=== PATIENT | female | born 1975 | race Caucasian/White ===

== ENCOUNTER 2020-01-28 11:28 | Day surgery (SDC) | payer BC ==
[2020-01-28] MEDS ORDERED: FERRIC CARBOXYMALTOSE 750 MG in SODIUM CHLORIDE 250 ML IVPB ONE (12:45)
[2020-01-28 15:04] VITALS: BP 126/86; PULSE 86; TEMP 98
== END 2020-01-28 13:04 | disposition home or self-care (01) ==
LOC: J7W 11:28 → JINFUSION 11:28 → J7W 14:01
PROVIDERS: ATTEND Family Medicine
PROC: 3E033GC Introduction of Other Therapeutic Substance into Peripheral Vein, Percutaneous Approach (ICD-10-PCS; principal; 2020-01-28)
DX: D50.9 Iron deficiency anemia, unspecified (principal)
CPT/HCPCS: 96365; J1439

== ENCOUNTER 2020-07-19 05:04 | Day surgery (SDC) | payer BC ==
[2020-07-19] MEDS ORDERED: FERRIC CARBOXYMALTOSE 750 MG in SODIUM CHLORIDE 250 ML IVPB ONE (14:00)
[2020-07-19 14:02] VITALS: TEMP 98.2
[2020-07-19 14:41] VITALS: BP 121/74; PULSE 75
== END 2020-07-19 13:25 | disposition home or self-care (01) ==
LOC: JINFUSION 05:04
PROVIDERS: ATTEND Family Medicine
PROC: 3E033GC Introduction of Other Therapeutic Substance into Peripheral Vein, Percutaneous Approach (ICD-10-PCS; principal; 2020-07-19)
DX: D50.9 Iron deficiency anemia, unspecified (principal)
CPT/HCPCS: 81025; 96365; J1439

== ENCOUNTER 2020-07-26 04:51 | Day surgery (SDC) | payer BC ==
[2020-07-26] MEDS ORDERED: FERRIC CARBOXYMALTOSE 750 MG in SODIUM CHLORIDE 250 ML IVPB ONE (10:30)
[2020-07-26 11:49] VITALS: BP 128/72; PULSE 74; TEMP 97.8
== END 2020-07-26 11:49 | disposition home or self-care (01) ==
LOC: JINFUSION 04:51
PROVIDERS: ATTEND Family Medicine
PROC: 3E033GC Introduction of Other Therapeutic Substance into Peripheral Vein, Percutaneous Approach (ICD-10-PCS; principal; 2020-07-26)
DX: D50.9 Iron deficiency anemia, unspecified (principal)
CPT/HCPCS: 81025; 96365; J1439

== ENCOUNTER 2020-12-18 05:04 | Day surgery (SDC) | payer BC ==
[2020-12-18] MEDS ORDERED: FERRIC CARBOXYMALTOSE 750 MG in SODIUM CHLORIDE 250 ML IVPB ONE (12:00)
[2020-12-18 12:51] VITALS: TEMP 98.1
[2020-12-18 13:13] VITALS: BP 109/62; PULSE 68
== END 2020-12-18 13:46 | disposition home or self-care (01) ==
LOC: JINFUSION 05:04
PROVIDERS: ATTEND Family Medicine
PROC: 3E033GC Introduction of Other Therapeutic Substance into Peripheral Vein, Percutaneous Approach (ICD-10-PCS; principal; 2020-12-18)
DX: D50.0 Iron deficiency anemia secondary to blood loss (chronic) (principal); N92.0 Excessive and frequent menstruation with regular cycle; E11.9 Type 2 diabetes mellitus without complications
CPT/HCPCS: 96365; J1439

== ENCOUNTER 2020-12-29 04:48 | Day surgery (SDC) | payer BC ==
[2020-12-29] MEDS ORDERED: FERRIC CARBOXYMALTOSE 750 MG in SODIUM CHLORIDE 250 ML IVPB ONE (09:30)
[2020-12-29 10:25] VITALS: BP 109/66; PULSE 85; TEMP 98.2
== END 2020-12-29 10:43 | disposition home or self-care (01) ==
LOC: JINFUSION 04:48
PROVIDERS: ATTEND Family Medicine
PROC: 3E033GC Introduction of Other Therapeutic Substance into Peripheral Vein, Percutaneous Approach (ICD-10-PCS; principal; 2020-12-29)
DX: D50.0 Iron deficiency anemia secondary to blood loss (chronic) (principal); N92.0 Excessive and frequent menstruation with regular cycle
CPT/HCPCS: 81025; 96365; J1439

== ENCOUNTER 2021-05-22 12:01 | Inpatient (IN) | payer BC ==
[2021-05-22 14:23] LABS: BASO % 0.5 % (0-2.0); EOS % 2.2 % (0-4.5); HEMATOCRIT 17.9 % (32.4-45.2); MCH 27.8 pg (25.7-33.7); MCHC 33.4 g/dl (32.0-36.0); MEAN CELL VOLUME 83.4 fl (80-96); MEAN PLT VOLUME 6.8 fl (7.5-11.1); MONO % 4.7 % (3.8-10.2); NEUT % 66.6 % (42.8-82.8); PLATELET COUNT 364 10^3/uL (134-434); RBC 2.15 M/mm3 (3.60-5.2); RDW 14.5 % (11.6-15.6); WHITE BLOOD COUNT 6.1 K/mm3 (4.0-10.0)
[2021-05-22 14:30] LABS: INR 1.1 (0.83-1.09); PROTHROMBIN TIME (PATIENT) 13.5 SEC (9.7-13.0)
[2021-05-22 14:32] LABS: ACTIVATED PTT 28.3 SECONDS (25.2-36.5)
[2021-05-22 14:51] LABS: CALCIUM 8.7 mg/dL (8.5-10.1)
[2021-05-22 14:52] LABS: ALBUMIN 3.4 g/dl (3.4-5.0); BLOOD UREA NITROGEN 6.3 mg/dL (7-18)
[2021-05-22 14:54] LABS: CREATININE 0.5 mg/dL (0.55-1.3)
[2021-05-22 14:56] LABS: BILIRUBIN,TOTAL 0.3 mg/dL (0.2-1); TOT PROT 6.4 g/dl (6.4-8.2)
[2021-05-22] MEDS ORDERED: ACETAMINOPHEN 1000 MG/100 ML VIAL (NON FORMULARY) IVPB PRN (15:24)
[2021-05-22] MEDS: DEXTROSE 5%-NORMAL SALINE 1,000 ML IV SCH (17:33)
[2021-05-22] MEDS: PANTOPRAZOLE SODIUM 40 MG VIAL IVPUSH SCH (22:39)
[2021-05-23 02:20] VITALS: BMI 34.2
[2021-05-23] MEDS: DEXTROSE 5%-NORMAL SALINE 1,000 ML IV SCH (03:07)
[2021-05-23 07:31] LABS: HEMATOCRIT 23.3 % (32.4-45.2); HEMOGLOBIN 7.9 GM/dL (10.7-15.3); MCH 28.5 pg (25.7-33.7); MCHC 33.7 g/dl (32.0-36.0); MEAN CELL VOLUME 84.6 fl (80-96); MEAN PLT VOLUME 7.2 fl (7.5-11.1); PLATELET COUNT 303 10^3/uL (134-434); RBC 2.76 M/mm3 (3.60-5.2); RDW 14.2 % (11.6-15.6); WHITE BLOOD COUNT 6.6 K/mm3 (4.0-10.0)
[2021-05-23 07:49] LABS: ALBUMIN 3.1 g/dl (3.4-5.0)
[2021-05-23 07:53] LABS: BLOOD UREA NITROGEN 8.1 mg/dL (7-18)
[2021-05-23 07:54] LABS: TOT PROT 5.6 g/dl (6.4-8.2)
[2021-05-23 07:56] LABS: BILIRUBIN,TOTAL 2.1 mg/dL (0.2-1); CREATININE 0.4 mg/dL (0.55-1.3)
[2021-05-23] MEDS: PANTOPRAZOLE SODIUM 40 MG VIAL IVPUSH SCH (09:49)
[2021-05-23 10:50] VITALS: BP 107/54; PULSE 86; TEMP 98.9
[2021-05-23] MEDS ORDERED: IRON SUCROSE INJECTION 200 MG in SODIUM CHLORIDE 90 ML IVPB ONE (15:30)
== END 2021-05-23 18:22 | disposition home or self-care (01) | DRG 812 ==
LOC: JER 12:01 → JERBED 14:40 → UNDOADMOB 14:40 → OBSVTOIN 15:23 → JERBED 15:23 → INTOOBSV 15:23 → J4S 20:51
PROVIDERS: ADMIT Family Medicine; ATTEND Family Medicine
PROC: 30233N1 Transfusion of Nonautologous Red Blood Cells into Peripheral Vein, Percutaneous Approach (ICD-10-PCS; principal; 2021-05-22)
DX: D50.9 Iron deficiency anemia, unspecified (principal); R74.8 Abnormal levels of other serum enzymes; N92.0 Excessive and frequent menstruation with regular cycle; D25.9 Leiomyoma of uterus, unspecified; R53.1 Weakness
CPT/HCPCS: 36415; 36430; 36511; 71045-TC-FY; 76705-TC; 80053; 82272; 83540; 83550; 85025; 85027; 85610; 85730; 86850; 86900; 86901; 86922; 93005; 93010; 99285-25; C9803; J1756; P9038; P9058; U0003; U0005

== ENCOUNTER 2021-06-13 04:41 | Day surgery (SDC) | payer BC ==
[2021-06-12 14:27] VITALS: BMI 33.5
[2021-06-13] MEDS ORDERED: BUPIVACAINE HCL/PF 0.5% (5MG/ML) 10 ML VIAL ONE ×2 (11:17→11:45)
[2021-06-13] MEDS ORDERED: BUPIVACAINE LIPOSOME/PF (EXPAREL) 266 MG/20 ML VIAL ONE (11:45)
[2021-06-13] MEDS ORDERED: MIDAZOLAM HCL 2 MG/2 ML SINGLE DOSE VIAL ONE ×2 (11:47)
[2021-06-13] MEDS ORDERED: PROPOFOL 20 ML ONE ×2 (12:52)
[2021-06-13] MEDS ORDERED: LIDOCAINE HCL/PF 2% SDV 5ML VIAL ONE (12:52)
[2021-06-13] MEDS ORDERED: fentaNYL CITRATE 250 MCG/5 ML VIAL ONE (12:53)
[2021-06-13] MEDS ORDERED: ROCURONIUM BROMIDE 50 MG/5 ML SYRINGE ONE ×2 (12:53→14:02)
[2021-06-13] MEDS ORDERED: ceFAZolin SODIUM 1 GM VIAL IVPB ONE (12:58)
[2021-06-13] MEDS ORDERED: ceFAZolin SODIUM 1 GM VIAL ONE (13:08)
[2021-06-13] MEDS ORDERED: DEXAMETHASONE SOD PHOSPHATE 4 MG/1 ML VIAL ONE (13:12)
[2021-06-13] MEDS ORDERED: DESFLURANE GAS 240 ML BOTTLE IH ONE (13:37)
[2021-06-13] MEDS ORDERED: ACETAMINOPHEN INJECTION 100 ML IVPB ONE ×2 (13:39→13:50)
[2021-06-13] MEDS ORDERED: NEOSTIGMINE METHYLSULFATE 0.5 MG/ML - 10 ML MDV ONE (14:15)
[2021-06-13] MEDS ORDERED: GLYCOPYRROLATE 0.2 MG/1 ML VIAL ONE (14:15)
[2021-06-13] MEDS ORDERED: DOCUSATE SODIUM 100 MG CAPSULE (FP) PO PRN (15:29)
[2021-06-13] MEDS ORDERED: ACETAMINOPHEN 325 MG TABLET (FP) PO PRN (15:29)
[2021-06-13] MEDS ORDERED: BISACODYL 5 MG TABLET.DR (FP) PO PRN (15:29)
[2021-06-13] MEDS ORDERED: oxyCODONE HCL 5 MG TABLET PO PRN (15:29)
[2021-06-13] MEDS ORDERED: ZOLPIDEM TARTRATE 5 MG TABLET PO PRN (15:29)
[2021-06-13] MEDS ORDERED: ACETAMINOPHEN 1000 MG/100 ML VIAL (NON FORMULARY) IVPB PRN (15:29)
[2021-06-13] MEDS ORDERED: KETOROLAC TROMETHAMINE 30 MG/1 ML VIAL IVPUSH PRN (15:29)
[2021-06-13] MEDS ORDERED: ONDANSETRON 4 MG/2 ML VIAL IVPUSH PRN ×2 (15:29→16:46)
[2021-06-13] MEDS ORDERED: SIMETHICONE 80 MG TAB.CHEW (FP) PO PRN (15:29)
[2021-06-13] MEDS ORDERED: HYDROmorphone HCl 2 MG/ML VIAL IVPUSH ONE (16:31)
[2021-06-13] MEDS ORDERED: IBUPROFEN 800 MG/8 ML IJ IVPB PRN (16:37)
[2021-06-13] MEDS ORDERED: IBUPROFEN 800 MG/8 ML IJ IVPB ONE (16:40)
[2021-06-13] MEDS ORDERED: LACTATED RINGERS SOLUTION 1,000 ML IV SCH (17:00)
[2021-06-13] MEDS ORDERED: CEFAZOLIN 1 GM/D5W 1 GM/50 ML BAG IVPB SCH (18:00)
[2021-06-13] MEDS: LACTATED RINGERS SOLUTION 1,000 ML IV SCH ×2 (18:17→21:45)
[2021-06-13] MEDS: CEFAZOLIN 1 GM/D5W 1 GM/50 ML BAG IVPB SCH (22:11)
[2021-06-14] MEDS: CEFAZOLIN 1 GM/D5W 1 GM/50 ML BAG IVPB SCH (06:34)
[2021-06-14] MEDS ORDERED: PT OWN MED DRAWER 7, Y5N ONE (09:35)
[2021-06-14] MEDS: ENOXAPARIN NA (PORCINE) 40 MG/0.4 ML DISP.SYRIN SQ SCH ×2 (09:38→09:44)
[2021-06-14] MEDS ORDERED: IRON POLYSACCHARIDES 150 MG CAPSULE PO SCH (10:00)
[2021-06-14] MEDS ORDERED: ASCORBIC ACID 500 MG TABLET (FP) PO SCH (10:00)
[2021-06-14] MEDS ORDERED: MAGNESIUM OXIDE 400 MG TABLET (FP) PO SCH (10:00)
[2021-06-14] MEDS ORDERED: VITAMIN B COMPLEX W/C COMBO TABLET (FP) PO SCH (10:00)
[2021-06-14] MEDS ORDERED: PANTOPRAZOLE 40 MG TABLET PO SCH (10:00)
[2021-06-14] MEDS ORDERED: CHOLECALCIFEROL (VIT D3) 1,000 UNIT (25 MCG) TABLET PO SCH (10:00)
[2021-06-14 10:24] VITALS: BP 127/70; PULSE 74; TEMP 98.3
[2021-06-14 10:55] LABS: HEMATOCRIT 33.9 % (32.4-45.2); HEMOGLOBIN 10.9 GM/dL (10.7-15.3); MCH 28.8 pg (25.7-33.7); MCHC 32.3 g/dl (32.0-36.0); MEAN CELL VOLUME 89.3 fl (80-96); MEAN PLT VOLUME 7.6 fl (7.5-11.1); PLATELET COUNT 450 10^3/uL (134-434); RDW 16.8 % (11.6-15.6); WHITE BLOOD COUNT 8.5 K/mm3 (4.0-10.0)
== END 2021-06-14 12:25 | disposition home or self-care (01) ==
LOC: JASUSAT 04:41 → J6S 17:47 → JASUSAT 06-14 12:24
PROVIDERS: ATTEND Specialist
PROC: 0UT2FZZ Resection of Bilateral Ovaries, Via Natural or Artificial Opening With Percutaneous Endoscopic Assistance (ICD-10-PCS; 2021-06-13)
PROC: 0UT7FZZ Resection of Bilateral Fallopian Tubes, Via Natural or Artificial Opening With Percutaneous Endoscopic Assistance (ICD-10-PCS; 2021-06-13)
PROC: 0UT9FZZ Resection of Uterus, Via Natural or Artificial Opening With Percutaneous Endoscopic Assistance (ICD-10-PCS; principal; 2021-06-13 12:00)
DX: D25.9 Leiomyoma of uterus, unspecified (principal); N92.1 Excessive and frequent menstruation with irregular cycle; N81.5 Vaginal enterocele; N72 Inflammatory disease of cervix uteri; N83.292 Other ovarian cyst, left side; N83.291 Other ovarian cyst, right side; D64.9 Anemia, unspecified
CPT/HCPCS: 36415; 81025; 85027; 88304-TC; 88309-TC; 94010; 94760; J0131

== ENCOUNTER 2024-06-21 05:30 | Day surgery (SDC) | payer BC ==
[2024-06-18 14:34] VITALS: BMI 30.1
[2024-06-21 09:17] VITALS: TEMP 98.7
[2024-06-21 09:53] VITALS: BP 114/64; PULSE 84; RESP 18
== END 2024-06-21 09:55 | disposition home or self-care (01) ==
LOC: JASU-ENDO 05:30
PROVIDERS: ATTEND Internal Medicine Gastroenterology
PROC: 0DBB8ZX Excision of Ileum, Via Natural or Artificial Opening Endoscopic, Diagnostic (ICD-10-PCS; principal; 2024-06-21 08:30)
DX: Z12.11 Encounter for screening for malignant neoplasm of colon (principal); K51.90 Ulcerative colitis, unspecified, without complications; K64.8 Other hemorrhoids
CPT/HCPCS: 88305-TC

== ENCOUNTER 2024-06-21 09:47 | Emergency (ER) | payer BC ==
[2024-06-21 10:02] VITALS: BP 133/86; PULSE 63; RESP 18; TEMP 97.6; BMI 30.1
[2024-06-21 10:42] LABS: BASO % 0.6 % (0-2.0); EOS % 2.6 % (0-4.5); HEMATOCRIT 38.7 % (32.4-45.2); LYMPH % 29.9 % (8-40); MCH 28.1 pg (25.7-33.7); MCHC 33.6 g/dl (32.0-36.0); MEAN CELL VOLUME 83.6 fl (80-96); MEAN PLT VOLUME 6.6 fl (7.5-11.1); MONO % 6.4 % (3.8-10.2); NEUT % 60.5 % (42.8-82.8); PLATELET COUNT 277 10^3/uL (134-434); RBC 4.64 M/mm3 (3.60-5.2); RDW 13.7 % (11.6-15.6); WHITE BLOOD COUNT 5.7 K/mm3 (4.0-10.0)
[2024-06-21 10:48] LABS: INR 1.17 (0.83-1.09); PROTHROMBIN TIME (PATIENT) 13.2 SEC (9.7-13.0)
[2024-06-21 10:51] LABS: ACTIVATED PTT 36.1 SECONDS (25.2-36.5)
[2024-06-21 10:59] LABS: POTASSIUM 3.9 mmol/L (3.5-5.1)
[2024-06-21 11:02] LABS: ALBUMIN 3.8 g/dl (3.4-5.0); BLOOD UREA NITROGEN 9.2 mg/dL (7-18); CALCIUM 9.5 mg/dL (8.5-10.1)
[2024-06-21 11:06] LABS: BILIRUBIN,TOTAL 0.8 mg/dL (0.2-1); CREATININE 0.6 mg/dL (0.55-1.3); TOT PROT 7.3 g/dl (6.4-8.2)
== END 2024-06-21 14:13 | disposition home or self-care (01) ==
LOC: JER 09:47
DX: K38.8 Other specified diseases of appendix (principal)
CPT/HCPCS: 36415; 74177-TC; 80053; 83690; 84703; 85025; 85610; 85730; 86850; 86900; 86901; 93005; 93010; 99285-25

== ENCOUNTER 2024-07-19 04:08 | Day surgery (SDC) | payer BC ==
[2024-07-15 13:39] VITALS: BMI 30.1
[2024-07-19] MEDS ORDERED: LIDOCAINE HCL/PF 2% SDV 5ML VIAL ONE (07:33)
[2024-07-19] MEDS ORDERED: PROPOFOL 60 ML ONE (07:33)
[2024-07-19] MEDS ORDERED: ONDANSETRON 4 MG/2 ML VIAL ONE (07:33)
[2024-07-19] MEDS ORDERED: SUCCINYLCHOLINE CHLORIDE 200 MG/10 ML SYRINGE ONE (07:33)
[2024-07-19] MEDS ORDERED: DEXAMETHASONE SOD PHOSPHATE 4 MG/1 ML VIAL ONE (07:33)
[2024-07-19] MEDS ORDERED: MIDAZOLAM HCL 2 MG/2 ML SINGLE DOSE VIAL ONE (07:33)
[2024-07-19] MEDS ORDERED: ROCURONIUM BROMIDE 50 MG/5 ML SYRINGE ONE (07:33)
[2024-07-19] MEDS ORDERED: BUPIVACAINE HCL/PF 0.25% (2.5MG/ML) 10 ML VIAL ONE (07:38)
[2024-07-19] MEDS ORDERED: ONDANSETRON 4 MG/2 ML VIAL IVPUSH PRN (07:57)
[2024-07-19] MEDS ORDERED: oxyCODONE HCL 5 MG TABLET PO PRN (07:57)
[2024-07-19] MEDS ORDERED: LACTATED RINGERS SOLUTION 1,000 ML IV SCH (08:00)
[2024-07-19] MEDS ORDERED: cefOXitin SODIUM 2 GM VIAL (RESTRICTED TO ID) IVPB ONE (08:21)
[2024-07-19] MEDS ORDERED: HEPARIN NA (PORCINE) 5,000 UNITS/ML 1ML VIAL ONE (08:24)
[2024-07-19] MEDS: ceFAZolin SODIUM 1 GM VIAL IVPB ONE (08:26)
[2024-07-19] MEDS: BUPIVACAINE HCL/PF 0.25% (2.5MG/ML) 10 ML VIAL IJ ONE ×2 (08:35)
[2024-07-19 11:18] VITALS: TEMP 97.7
[2024-07-19 12:55] VITALS: BP 121/64; PULSE 70; RESP 18
== END 2024-07-19 13:15 | disposition home or self-care (01) ==
LOC: JASU-SURG 04:08
PROVIDERS: ATTEND Surgery
PROC: 0DTJ4ZZ Resection of Appendix, Percutaneous Endoscopic Approach (ICD-10-PCS; principal; 2024-07-19 08:00)
DX: K35.890 Other acute appendicitis without perforation or gangrene (principal)
CPT/HCPCS: 88304-TC; 94760; J1644